=== PATIENT | female | born 1990 | race Caucasian/White ===

== ENCOUNTER 2017-08-24 14:53 | Emergency (ER) | payer MEDICAID ==
[~2017-08-24] VITALS: Ht 154.9 cm; Wt 70.3 kg
[2017-08-24 15:06] VITALS: BP_SYST 116
[2017-08-24 15:56] VITALS: BP_SYST 117
== END 2017-08-24 15:55 | disposition home or self-care (01) ==
LOC: SED 14:53
DX: H10.9 Unspecified conjunctivitis (principal); R03.0 Elevated blood-pressure reading, without diagnosis of hypertension
CPT/HCPCS: 81025; 99283